=== PATIENT | female | born 1955 | race Caucasian/White ===

== ENCOUNTER 2021-12-06 09:08 | Outpatient (CLI) | payer MEDICARE | END 2021-12-06 09:09 | disposition critical access hospital (66) | LOC: EMS 09:08 | DX: R07.9 Chest pain, unspecified (principal); R11.2 Nausea with vomiting, unspecified | CPT/HCPCS: A0425; A0429 ==

== ENCOUNTER 2021-12-06 09:13 | Emergency (ER) | payer MEDICARE ==
[2021-12-06] MEDS ORDERED: SODIUM CHLORIDE 0.9% 1,000 ML IV STA (09:49)
--- NOTE | 2021-12-06 09:53 | ED Physician Documentation ---
PD HPI CHEST PAIN - Stated complaint Stated Complaint: CHEST PAIN - Chief complaint Chief Complaint: Cardiac - History obtained from History obtained from: Patient - Additional information Additional information: Patient is a 66-year-old female with a history of hyperlipidemia presenting for evaluation of midsternal chest pain that started yesterday and has been constant through the day and until today. She describes it as a dull feeling. Nothing makes it better or worse. It does not radiate elsewhere. She initially thought it was heartburn but it has not improved. This morning she had 3 episodes of bilious emesis. She denies blood in emesis. She reports no longer feeling nauseous and actually feels hungry.She denies difficulty breathing, abdominal pain, diarrhea or constipation. Denies history of PE or DVT, recent surgery or immobilization, leg pain or swelling. She denies previous cardiac history. She denies tobacco use but does report daily alcohol use with anywhere from 1 glass of wine to 6 shots of vodka. She denies feeling tremulous in the morning or having alcohol withdrawal symptoms in the past. Review of Systems Constitutional: denies: Fever Nose: denies: Congestion Throat: denies: Sore throat Cardiac: reports: Chest pain / pressure Respiratory: denies: Dyspnea, Cough GI: reports: Nausea, Vomiting. denies: Abdominal Pain, Diarrhea : denies: Dysuria Musculoskeletal: denies: Back pain, Extremity swelling Neurologic: denies: Syncope, Headache PD PAST MEDICAL HISTORY - Allergies Allergies/Adverse Reactions: Allergies Allergy/AdvReac Type Severity Reaction Status Date / Time bupropion [From Wellbutrin] Allergy Unknown Verified 12/06/21 09:51 PD ED PE NORMAL - General General: Alert and oriented X 3, No acute distress, Well developed/nourished - HEENT HEENT: Atraumatic, Moist mucous membranes - Neck Neck: Supple, no meningeal sign - Cardiac Cardiac: RRR, No murmur, Strong equal pulses - Respiratory Respiratory: No respiratory distress, Clear bilaterally - Abdomen Abdomen: Normal bowel sounds, Soft, Non tender, Non distended - Back Back: No CVA TTP - Derm Derm: Warm and dry - Extremities Extremities: No edema, No calf tenderness / cord - Neuro Neuro: Normal speech Results - Vitals Vitals: Vital Signs - 24 hr 12/06/21 12/06/21 09:22 11:40 Temperature 36.9 C Heart Rate 67 70 Respiratory 20 23 Rate Blood Pressure 148/81 H 143/79 H O2 Saturation 100 99 Oxygen O2 Source Room air - EKG (time done) 1045 Rate: Rate (enter#) (66) Rhythm: NSR Ischemia: No: ST elevation c/w ischemia, ST depression Compare to prior EKG: Unchanged from prior EKG - Labs Labs: Laboratory Tests 12/06/21 12/06/21 12/06/21 10:00 10:00 10:00 WBC 4.4 L RBC 4.02 L Hgb 12.5 Hct 36.5 L MCV 90.8 MCH 31.1 H MCHC 34.2 RDW 13.4 Plt Count 134 MPV 9.4 Neut # (Auto) 3.2 Lymph # (Auto) 0.6 L [place] # (Auto) 0.4 Eos # (Auto) 0.1 Baso # (Auto) 0.0 Absolute Nucleated RBC 0.00 Nucleated RBC % 0.0 Sodium 140 Potassium 3.5 Chloride 104 Carbon Dioxide 26 Anion Gap 10.0 BUN 20 Creatinine 0.9 Estimated GFR (MDRD) 63 L Glucose 125 H Calcium 9.3 Total Bilirubin 0.9 AST 21 ALT 23 Alkaline Phosphatase 88 Troponin I High Sens 2.9 Total Protein 6.6 L Albumin 4.4 Globulin 2.2 Albumin/Globulin Ratio 2.0 Lipase 36 PD MEDICAL DECISION MAKING - ED course Complexity details: reviewed results, re-evaluated patient, d/w patient ED course: Pt presenting for evaluation of chest pain that has been constant x 24 hours. Pain does not radiate or worsen with activity. EKG reviewed and troponin negative. Chest xray clear. Doubt PE as no SOB and no leg swelling and doubt dissection as pain is not migratory or worsening. Pt reports feeling better her and tolerating PO. Discussed need for close follow up with PCP as well as concerning symptoms to return for. 1122 - Feeling better, pain gone and wanting to eat. Departure - Departure Disposition: 01 Home, Self Care Clinical Impression: Chest pain Condition: Stable Instructions: ED Chest Pain Atypical Unkn Cause Comments: You were evaluated for chest pain. Your EKG shows a normal rhythm and your cardiac marker is normal. Your electrolytes are also normal and your chest x- ray looks clear. The exact cause of your symptoms is unclear but your symptoms do appear to be improving which is reassuring. Please call your primary care doctor today for close follow-up as you may need further testing such as a stress test. If you have any worsening symptoms please return to the ER. Discharge Date/Time: 12/06/21 11:48
[2021-12-06 10:09] LABS: BASOPHILS % (AUTO) 0.5 %; EOSINOPHILS # (AUTO) 0.1 10^3/uL (0.0-0.7); EOSINOPHILS % (AUTO) 3.2 %; HCT - HEMATOCRIT 36.5 % (37.0-47.0); HGB - HEMOGLOBIN 12.5 g/dL (12.0-16.0); LYMPHOCYTES # (AUTO) 0.6 10^3/uL (1.5-3.5); LYMPHOCYTES % (AUTO) 14.2 %; MEAN CORPUSCULAR HEMOGLOBIN 31.1 pg (27.0-31.0); MEAN CORPUSCULAR HGB CONC 34.2 g/dL (32.0-36.0); MEAN CORPUSCULAR VOLUME 90.8 fL (81.0-99.0); MEAN PLATELET VOLUME 9.4 fL (7.9-10.8); MONOCYTES # (AUTO) 0.4 10^3/uL (0.0-1.0); NEUTROPHILS # (AUTO) 3.2 10^3/uL (1.5-6.6); NEUTROPHILS % (AUTO) 73.9 %; PLT - PLATELET COUNT 134 10^3/uL (130-450); RED BLOOD COUNT 4.02 10^6/uL (4.20-5.40); RED CELL DISTRIBUTION WIDTH 13.4 % (12.0-15.0); WHITE BLOOD COUNT 4.4 x10^3/uL (4.8-10.8)
--- NOTE | 2021-12-06 10:25 | XRAY Report ---
PROCEDURE: Chest 1 View X-Ray INDICATIONS: CP TECHNIQUE: One view of the chest was acquired. COMPARISON: None FINDINGS: Surgical changes and devices: None. Lungs and pleura: No pleural effusions or pneumothorax. Lungs are clear. Mediastinum: Mediastinal contours appear normal. Heart size is normal. Bones and chest wall: No suspicious bony lesions. Overlying soft tissues appear unremarkable. IMPRESSION: No acute cardiopulmonary pathology. Reviewed by: Mario Del Real MD on 12/06/2021 10:24 AM PDT Approved by: Mario Del eRal MD on 12/06/2021 10:24 AM PDT Station ID: [id number]
[2021-12-06 10:27] LABS: ALBUMIN 4.4 g/dL (3.2-5.5); BILIRUBIN,TOTAL 0.9 mg/dL (0.2-1.0); CALCIUM 9.3 mg/dL (8.5-10.3); CREATININE 0.9 mg/dL (0.4-1.0); POTASSIUM 3.5 mmol/L (3.5-5.0); TOTAL PROTEIN 6.6 g/dL (6.7-8.2)
[2021-12-06 11:41] VITALS: BP 143/79
== END 2021-12-06 11:48 | disposition home or self-care (01) ==
LOC: ED 09:13
DX: R07.9 Chest pain, unspecified (principal)
CPT/HCPCS: 36415; 80053; 83690; 84484; 85025; 93005; 96360; 99284